=== PATIENT | male | born 1995 | race Caucasian/White ===

== ENCOUNTER 2017-10-16 17:43 | Emergency (ER) | payer SELFPAY ==
[~2017-10-16] VITALS: Ht 182.9 cm; Wt 77.1 kg
--- NOTE | 2017-10-16 19:08 | NUR ---
report given to rn. Aguilera.
--- NOTE | 2017-10-16 19:54 | NUR ---
Wound bandaged with 4x4s and roller gauze. Gave pt RX and d/c instructions, verbalized understanding.
== END 2017-10-16 19:55 | disposition home or self-care (01) ==
LOC: ER 17:43
DX: L02.413 Cutaneous abscess of right upper limb (principal)
CPT/HCPCS: A4663

== ENCOUNTER 2018-10-31 08:22 | Emergency (ER) | payer SELFPAY ==
[~2018-10-31] VITALS: Ht 182.9 cm; Wt 70.3 kg
[2018-10-31] MEDS ORDERED: KETOROLAC TROMETHAMINE 30 MG INJ ONE (08:40)
[2018-10-31] MEDS ORDERED: LIDOCAINE HCL 1% 20 ML VIAL ONE (08:40)
[2018-10-31] MEDS ORDERED: METOCLOPRAMIDE HCL 10 MG/2 ML VIAL ONE (08:40)
[2018-10-31] MEDS ORDERED: KETOROLAC TROMETHAMINE 30 MG INJ IM ONE (08:45)
[2018-10-31] MEDS ORDERED: METOCLOPRAMIDE HCL 10 MG/2 ML VIAL IM ONE (08:45)
[2018-10-31] MEDS ORDERED: LIDOCAINE HCL 1% 20 ML VIAL IJ ONE (08:45)
--- NOTE | 2018-10-31 08:55 | NUR ---
carolyn carrillo I&d the wound on above the left knee, without difficulty.
[2018-10-31] MEDS ORDERED: CEphaleXIN 500 MG CAPSULE ONE (09:23)
[2018-10-31] MEDS ORDERED: SULFAMETH/TRIMETH 800/160 MG TABLET ONE (09:23)
[2018-10-31] MEDS ORDERED: SULFAMETH/TRIMETH 800/160 MG TABLET PO ONE (09:30)
[2018-10-31] MEDS ORDERED: CEphaleXIN 500 MG CAPSULE PO ONE (09:30)
--- NOTE | 2018-10-31 09:38 | NUR ---
Patient does not wish to proceed with medical care recommended by Dr. diamond ). Patient given information related to possible complications, up to and including , which could occur as a result of leaving the hospital at this time. Patient verbalizes understanding of risks involved due to leaving against medical advice. Patient has signed AMA form.pt walks in steady gait. pt accompanied by mother.
== END 2018-10-31 09:42 | disposition home or self-care (01) ==
LOC: ER 08:22
DX: L03.115 Cellulitis of right lower limb (principal); L03.116 Cellulitis of left lower limb; L02.416 Cutaneous abscess of left lower limb; J02.9 Acute pharyngitis, unspecified; F11.10 Opioid abuse, uncomplicated; F15.10 Other stimulant abuse, uncomplicated
CPT/HCPCS: 10060; 36415; 86403; 87400; 96372; 99283; J1885; J2765; A4663; J3490

== ENCOUNTER 2020-03-02 22:14 | Emergency (ER) | payer OTHER ==
[~2020-03-02] VITALS: Ht 182.9 cm; Wt 65.8 kg
--- NOTE | 2020-03-02 22:25 | NUR ---
PATIENT WAS MSE BY DR BAEZ IN ROOM 04A.
[2020-03-02] MEDS ORDERED: CLINDAMYCIN HCL 150 MG CAPSULE PO ONE (22:30)
[2020-03-02] MEDS ORDERED: CEFTRIAXONE 1 G VIAL IM ONE (22:30)
[2020-03-02] MEDS ORDERED: LIDOCAINE HCL 1% 20 ML VIAL ONE (22:34)
[2020-03-02] MEDS ORDERED: CLINDAMYCIN HCL 150 MG CAPSULE ONE (22:34)
[2020-03-02] MEDS ORDERED: CEFTRIAXONE 1 G VIAL ONE ×2 (22:34→22:42)
--- NOTE | 2020-03-02 22:50 | NUR ---
Patient discharged to home in stable condition. Written and verbal after care instructions given. Patient verbalizes understanding of instructions. Stressed follow up or return to ER for worsening s/s.
[2020-03-02 22:56] VITALS: BP 135/89
--- NOTE | 2020-03-02 23:00 | NUR ---
PATIENT HAS NO ADVEREACTION TO ATB MEDICATIONS GIVEN.
== END 2020-03-02 23:03 | disposition home or self-care (01) ==
LOC: ER 22:16
DX: L03.114 Cellulitis of left upper limb (principal); R00.0 Tachycardia, unspecified; F19.10 Other psychoactive substance abuse, uncomplicated; Z59.0 Homelessness
CPT/HCPCS: 96372; 99283; J0696; J3490; A4663

== ENCOUNTER 2021-03-16 02:39 | Emergency (ER) | payer OTHER ==
[~2021-03-16] VITALS: Ht 182.9 cm; Wt 63.5 kg
--- NOTE | 2021-03-16 03:06 | NUR ---
Dr. Brooks at bedside at [facility].
--- NOTE | 2021-03-16 03:44 | NUR ---
Patient refused CT head, Dr. Brooks aware.
[2021-03-16 03:45] VITALS: BP 128/77
== END 2021-03-16 03:45 | disposition home or self-care (01) ==
LOC: ER 02:43
DX: G56.31 Lesion of radial nerve, right upper limb (principal)
CPT/HCPCS: A4663

== ENCOUNTER 2023-01-18 17:30 | Emergency (ER) | payer OTHER ==
[~2023-01-18] VITALS: Ht 182.9 cm; Wt 68.0 kg
[2023-01-18] MEDS ORDERED: SULFAMETH/TRIMETH 800/160 MG TABLET ONE (19:29)
[2023-01-18] MEDS ORDERED: SULFAMETH/TRIMETH 800/160 MG TABLET PO ONE (19:30)
[2023-01-18] MEDS ORDERED: SULF1TAB48 PO (19:31)
[2023-01-18 20:13] VITALS: BP 128/79
== END 2023-01-18 19:40 | disposition home or self-care (01) ==
LOC: ER 17:30
DX: L03.113 Cellulitis of right upper limb (principal); F15.10 Other stimulant abuse, uncomplicated; F17.210 Nicotine dependence, cigarettes, uncomplicated; Z71.6 Tobacco abuse counseling; Z79.899 Other long term (current) drug therapy
CPT/HCPCS: A4663